=== PATIENT | female | born 1985 | race Two or more races ===

== ENCOUNTER 2024-11-22 15:28 | Emergency (ER) | payer MEDICAID, SELFPAY ==
[2024-11-22 15:50] VITALS: BP 128/82; PULSE 63; RESP 18; TEMP 36.8; O2SAT 99; BMI 25.9
--- NOTE | 2024-11-22 15:53 | XR_ITS ---
Examination: Shoulder,left, 3 views Technique: Shoulder AP internal rotation, AP external rotation, Y view shoulder, 3 views Exam date and time :November 22, 2024 1554 hours INDICATIONS: Patient fell today with injury to the shoulder, shoulder pain FINDINGS: No shoulder fracture or dislocation No AC joint separation IMPRESSION: No shoulder fracture or dislocation
--- NOTE | 2024-11-22 16:07 | PD.EDUPEX ---
Upper Extremity Injury RME/HPI General Chief Complaint: Extremity Injury, Upper Stated Complaint: over extended left shoulder and heard pop. Time Seen by Provider: 11/22/24 15:48 Arrival date/time: 11/22/24 15:28 39-year-old female presents emergency department today since she overextended her left shoulder and heard a pop yesterday patient reports pain with movement of left shoulder at this time Limitations: no limitations Related Data Previous Rx's ?Medication ?Instructions ?Recorded acetaminophen 500 mg capsule 1,000 mg (2 x 500 mg) PO Q8HR PRN 02/10/24 pain #30 caps Allergies Allergy/AdvReac Type Severity Reaction Status Date / Time fentanyl Allergy Severe Hives Verified 11/22/24 15:30 hydromorphone [From Dilaudid] Allergy Severe Hives Verified 11/22/24 15:30 ibuprofen Allergy Severe Hives Verified 11/22/24 15:30 ketorolac Allergy Severe ANXIETY,ITC Verified 11/22/24 15:30 DEL morphine Allergy Severe ANXIETY,ITC Verified 11/22/24 15:30 DEL ondansetron HCl Allergy Severe ITCHING, Verified 11/22/24 15:30 WELTS Pork/Porcine Containing Allergy Severe THROAT Verified 11/22/24 15:30 Products SWELLS, HIVES Review of Systems Review of Systems Systems Reviewed: All systems reviewed, normal except as documented Constitutional Constitutional: Reports system reviewed and no additional complaints, except as documented, Denies fever(s) and Denies headache(s) Eyes Eyes: Reports system reviewed and no additional complaints, except as documented and Denies blurry vision ENT Ears, Nose, Mouth, and Throat: Reports system reviewed and no additional complaints, except as documented, Denies headache(s), Denies nasal congestion and Denies nasal discharge Cardiovascular Cardiovascular: Reports system reviewed and no additional complaints, except as documented, Denies chest pain and Denies dyspnea Respiratory Respiratory: Reports system reviewed and no additional complaints, except as documented, Denies chest congestion, Denies cough and Denies dyspnea Gastrointestinal Gastrointestinal: Reports system reviewed and no additional complaints, except as documented and Denies abdominal pain Musculoskeletal Musculoskeletal: Reports system reviewed and no additional complaints, except as documented, Reports arthralgias, Reports stiffness and Denies tingling Integumentary/Breasts Skin/Breast: Reports system reviewed and no additional complaints, except as documented and Denies rash Neurologic Neurologic: Reports system reviewed and no additional complaints, except as documented, Reports as per HPI, Denies headache(s) and Denies tingling Past Medical History Past Medical History NEUROLOGIC: Negative Neurological Disorders CARDIAC: Negative Cardiac Disorders ED Exam General Limitations: Present no limitations General appearance: Present alert and in no apparent distress Head Head exam: Present atraumatic, normocephalic and normal inspection Eye Eye exam: Present normal appearance, PERRL and EOMI ENT ENT exam: Present normal exam, normal oropharynx and mucous membranes moist Neck Neck exam: Present normal inspection, full ROM and trachea midline Chest Chest inspection: Present normal inspection and symmetric chest wall rise Respiratory Respiratory exam: Present normal lung sounds bilaterally Cardiovascular Cardiovascular exam: Present regular rate, normal rhythm and normal heart sounds Abdominal Exam Abdominal exam: Present soft and normal bowel sounds Extremities Exam Extremities exam: Present normal inspection, full ROM, tenderness, normal capillary refill and other (Left shoulder pain); Absent joint swelling Back Exam Back exam: Present normal inspection and full ROM Neurological Exam Neurological exam: Present alert, oriented X3 and CN II-XII intact Psychiatric Psychiatric exam: Present normal affect and normal mood Skin Skin exam: Present warm, dry, intact and normal color Course Quality Measures none Orders Category Date Time Status sling [Splint / Immobilizer] STAT Care 11/22/24 16:09 Active XR shoulder LT min 2V Stat Exams 11/22/24 15:53 Completed Vital Signs Vital signs: Vital Signs Temperature 98.3 F 11/22/24 15:50 Pulse Rate 63 11/22/24 15:50 Respiratory Rate 18 11/22/24 15:50 Blood Pressure 128/82 11/22/24 15:50 Pulse Oximetry (%) 99 11/22/24 15:50 Oxygen Delivery Method Room Air 11/22/24 15:50 O2 saturation 99% room air within normal limits Extremity Injury MDM Narrative MDM Narrative:: 39-year-old female presents emergency department today since she overextended her left shoulder and heard a pop yesterday patient reports pain with movement of left shoulder at this time X-ray left shoulder obtained no acute fracture dislocation noted I do suspect patient has a rotator cuff tear Patient placed in a sling Patient discharged home in no distress to follow-up with primary care doctor in the next 24 to 48 hours and for any worsening symptoms to return to the ER immediately Patient data External records reviewed:: [facility] previous records Clinical information provided by:: patient Social determinants that could affect healthcare access:: none Patient has the following chronic illnesses:: See history How is presenting disease/condition affected by chronic disease/condition?: uneffected by Evaluation data The following diagnostics were reviewed and interpreted by me:: radiology exam(s) Lab and/or radiology exams considered but not ordered:: Radiology obtain Interpretation Summary: N/A Medications / Prescriptions Medications or Prescriptions considered but not ordered:: Given Medication administrations:: Given Consultations Consultation(s) initiated? (list below): No Diagnosis Upper Extremity Injury Differential Diagnosis: other (Shoulder sprain, shoulder fracture) Most likely diagnosis given after review of the tests above:: Shoulder sprain Admission Indicated Admission indicated?: not indicated Admission Request Was there a request for admission?: No Disposition Plan Disposition Plan: Discharge Discharge Attestation Discharge Attestation: The patient and all family members were given an opportunity to ask questions and understood the discharge instructions. Discharge instructions specifically effects, indications for sooner follow up or return to the emergency department, and the expected course of current diagnosis. Patient condition: Stable Discharge Plan Plan Patient Disposition: HOME (Self Care) Disposition Comment: Stable Prescriptions/Referrals Prescriptions/Med Rec: No Action acetaminophen 500 mg capsule 1,000 mg PO Q8HR PRN (Reason: pain) Qty: 30 0RF Problem List Clinical Impression: Injury of left rotator cuff Patient/Caregiver Discharge Instructions Education Materials: External Rotation Shoulder Additional Instructions: I suspect you have a rotator cuff injury please see your PCP for further evaluation and MRI Print Language: Malaysian Stand Alone Forms: Maryam Award Info., Work/School Release, Patient Portal Info Letter KARLA/JASON Supervising Physician KARLA/JASON Supervising Physician: Dr encarnacion
== END 2024-11-22 17:00 | disposition home or self-care (01) ==
LOC: SERX 16:15
PROVIDERS: Emergency Provider Emergency Medicine; PCP Family Medicine
DX: S46.002A Unspecified injury of muscle(s) and tendon(s) of the rotator cuff of left shoulder, initial encounter (principal); X58.XXXA Exposure to other specified factors, initial encounter
CPT/HCPCS: 73030; 99283; A4565

== ENCOUNTER 2025-02-12 09:57 | Emergency (ER) | payer MEDICAID, SELFPAY ==
[2025-02-12 09:58] VITALS: BMI 25.7
--- NOTE | 2025-02-12 10:39 | XR_ITS ---
Examination: PA lateral chest 2 views TECHNIQUE: Upright PA lateral chest 2 views Exam date and time: February 12, 2025 1057 hours INDICATIONS: Coughing fever being 3 days ago. FINDINGS: Normal heart size Lungs are clear. The osseous structures are intact IMPRESSION: No active disease
--- NOTE | 2025-02-12 10:40 | EDNOTE_ITS ---
<Statement entered by Narda Jameson MD - 02/12/25 15:15> As co-signing physician, I was present and available for consult prn. I concur with the plan and care as documented by the midlevel provider. Upper Respiratory Inf. RME/HPI General Chief Complaint: Shortness of Breath/Dyspnea Stated Complaint: SOB & COUGH X3 DAYS Time Seen by Provider: 02/12/25 10:41 Source: patient Arrival date/time: 02/12/25 09:57 39-year-old female with no known medical history presents to the emergency room with a chief complaint of shortness of breath, cough, left ear pain x 3 days Mode of arrival: ambulatory Limitations: no limitations Related Data Previous Rx's ?Medication ?Instructions ?Recorded acetaminophen 500 mg capsule 1,000 mg (2 x 500 mg) PO Q8HR PRN 02/10/24 pain #30 caps hydrocodone 5 mg-acetaminophen 325 1 tab PO BID PRN pa in #10 tabs 11/22/24 mg tablet amoxicillin 875 mg-potassium 1 tab PO BID 7 days #14 t abs 02/12/25 clavulanate 125 mg tablet Allergies Allergy/AdvReac Type Severity Reaction Status Date / Time fentanyl Allergy Severe Hives Verified 11/22/24 15:30 hydromorphone (From Dilaudid) Allergy Severe Hives Verified 11/22/24 15:30 ibuprofen Allergy Severe Hives Verified 11/22/24 15:30 ketorolac Allergy Severe ANXIETY,ITC Verified 11/22/24 15:30 DEL morphine Allergy Severe ANXIETY,ITC Verified 11/22/24 15:30 DEL ondansetron HCl Allergy Severe ITCHING, Verified 11/22/24 15:30 WELTS Pork/Porcine Containing Allergy Severe THROAT Verified 11/22/24 15:30 Products SWELLS, HIVES Review of Systems Review of Systems Systems Reviewed: All systems reviewed, normal except as documented Constitutional Constitutional: Reports system reviewed and no additional complaints, except as documented, Denies fatigue, Denies fever(s), Denies headache(s) and Denies weakness Eyes Eyes: Reports system reviewed and no additional complaints, except as documented, Denies blurry vision and Denies change in vision ENT Ears, Nose, Mouth, and Throat: Reports system reviewed and no additional complaints, except as documented, Reports otalgia, Denies headache(s), Denies nasal congestion, Reports sore throat, Denies throat swelling and Denies vertigo Cardiovascular Cardiovascular: Reports system reviewed and no additional complaints, except as documented, Denies chest pain, Reports dyspnea and Denies dyspnea on exertion Respiratory Respiratory: Reports system reviewed and no additional complaints, except as documented, Reports chest congestion, Reports cough, Reports dyspnea, Denies dyspnea on exertion and Denies wheezing Gastrointestinal Gastrointestinal: Reports system reviewed and no additional complaints, except as documented, Denies abdominal pain, Denies cramping, Denies nausea and Denies vomiting Genitourinary Genitourinary: Reports system reviewed and no additional complaints, except as documented Musculoskeletal Musculoskeletal: Reports system reviewed and no additional complaints, except as documented and Denies back pain Integumentary/Breasts Skin/Breast: Reports system reviewed and no additional complaints, except as documented and Denies wounds Neurologic Neurologic: Reports system reviewed and no additional complaints, except as documented, Denies confusion, Denies headache(s), Denies lack of coordination, Denies vertigo and Denies weakness Psychiatric Psychiatric: Reports system reviewed and no additional complaints, except as documented, Denies anxiety, Denies confusion, Denies depression, Denies paranoia, Denies suicidal ideation and Denies tactile hallucinations Endocrine Endocrine: Reports system reviewed and no additional complaints, except as documented and Denies fatigue Hematologic/Lymphatic Hematologic/Lymphatic: Reports system reviewed and no additional complaints, except as documented and Denies lymphadenopathy Allergic/Immunologic Allergic/Immunologic: Reports system reviewed and no additional complaints, except as documented, Denies throat swelling, Denies urticaria and Denies wheezing Past Medical History Past Medical History NEUROLOGIC: Negative Neurological Disorders or Seizures CARDIAC: Negative Cardiac Disorders or Congestive Heart Failure RESPIRATORY: Negative Chronic Obstructive Pulmonary Disease (COPD) GASTROINTESTINAL: Negative Gastrointestinal Disorders GENITOURINARY: Positive Genitourinary Disorders; Negative Renal Disease MUSCULOSKELETAL: Positive Musculoskeletal Disorders (left knee surgery (10 years ago).) ENDOCRINE: Negative Diabetes Mellitus Type 1 or Diabetes Mellitus Type 2 OTHER HISTORY: Negative Autoimmune Disease, Blood Transfusions, Blood Transfusion Reaction or Anesthesia Reactions Family History FAMILY HISTORY: Negative Family Psychiatric Problems, Family Respiratory Disorders, Family Cardiac Disorders, Family Gastrointestinal Problems, Family Cancer or Family Anesthesia Reaction Surgical History SURGICAL: Positive Abdominal Surgery and Hysterectomy Social History SMOKING STATUS: Never smoker ED Exam General Limitations: Present no limitations General appearance: Present alert and in no apparent distress Head Head exam: Present atraumatic Eye Eye exam: Present normal appearance, PERRL and EOMI ENT ENT exam: Present normal exam, normal oropharynx and mucous membranes moist Expanded ENT Exam Mouth exam: Present normal external inspection Teeth exam: Present normal inspection Throat exam: Present normal inspection; Absent tonsillar erythema, tonsillar exudate or muffled voice Neck Neck exam: Present normal inspection, full ROM and trachea midline Chest Chest inspection: Present normal inspection and symmetric chest wall rise Respiratory Respiratory exam: Present normal lung sounds bilaterally; Absent respiratory distress, wheezes, stridor, accessory muscle use or prolonged expiratory phase Cardiovascular Cardiovascular exam: Present regular rate, normal rhythm and normal heart sounds Abdominal Exam Abdominal exam: Present soft and normal bowel sounds Extremities Exam Extremities exam: Present normal inspection and full ROM Back Exam Back exam: Present normal inspection and full ROM Neurological Exam Neurological exam: Present alert, oriented X3 and CN II-XII intact Psychiatric Psychiatric exam: Present normal affect and normal mood Skin Skin exam: Present warm, dry, intact and normal color Course Quality Measures none Orders Category Date Time Status Bedside COVID-19 Antigen Test NOW Care 02/12/25 10:39 Completed Bedside Influenza A&B Antigen Test NOW Care 02/12/25 10:39 Completed XR chest 2V Stat Exams 02/12/25 10:39 Completed Vital Signs Vital signs: Vital Signs Temperature 99.0 F 02/12/25 10:41 Pulse Rate 80 02/12/25 10:41 Respiratory Rate 19 02/12/25 10:41 Blood Pressure 119/81 02/12/25 10:41 Pulse Oximetry (%) 98 02/12/25 10:41 Oxygen Delivery Method Room Air 02/12/25 10:41 O2 saturation 98% within normal limits Upper Respiratory Infection MDM Narrative MDM Narrative:: 39-year-old female with no known medical history presents to the emergency room with a chief complaint of shortness of breath, cough, left ear pain x 3 days Patient is hemodynamically stable and in no apparent distress There is no tachypnea no tachycardia and the patient is afebrile. O2 saturation is 97% on room air Lung sounds are clear bilaterally there is no wheezing or any abnormal breath sounds ENT examination shows a erythemic posterior pharynx there are no bilateral tonsillar exudates. The left-sided tympanic membrane is erythemic and bulging. Antibiotics are sent to the patient's pharmacy Chest x-ray was negative for any pneumonic infiltrates. COVID-19 and influenza were negative. Patient was discharged and educated to follow-up with primary care provider in the next 24 to 48 hours and return to the emergency room for any evidence of worsening signs or symptoms Patient data External records reviewed:: [facility] previous records Clinical information provided by:: patient Social determinants that could affect healthcare access:: none Patient has the following chronic illnesses:: No chronic illness How is presenting disease/condition affected by chronic disease/condition?: no chronic disease Evaluation data The following diagnostics were reviewed and interpreted by me:: lab results and radiology exam(s) Lab and/or radiology exams considered but not ordered:: Labs and radiology exams considered and ordered Interpretation Summary: Chest x-ray-no pneumonic infiltrates Medications / Prescriptions Medications or Prescriptions considered but not ordered:: Medication given Medication administrations:: Medication given Consultations Consultation(s) initiated? (list below): No Diagnosis Upper Respiratory Differential Diagnosis: upper respiratory infection, otitis media, viral infection, bronchitis, influenza and pharyngitis Most likely diagnosis given after review of the tests above:: Otitis media Admission Indicated Admission indicated?: not indicated Admission Request Was there a request for admission?: No Disposition Plan Disposition Plan: Discharge Discharge Attestation Discharge Attestation: The patient and all family members were given an opportunity to ask questions and understood the discharge instructions. Discharge instructions specifically effects, indications for sooner follow up or return to the emergency department, and the expected course of current diagnosis. Patient condition: Stable Discharge Plan Plan Patient Disposition: HOME (Self Care) Disposition Comment: Stable Prescriptions/Referrals Prescriptions/Med Rec: New amoxicillin-pot clavulanate 875-125 mg tablet 1 tab PO BID 7 Days Qty: 14 0RF No Action acetaminophen 500 mg capsule 1,000 mg PO Q8HR PRN (Reason: pain) Qty: 30 0RF hydrocodone-acetaminophen 5-325 mg tablet 1 tab PO BID MDD 10 PRN (Reason: pain) Qty: 10 0RF Referrals: Ted Larkin MD [Primary Care Provider] - In 1 week Problem List Clinical Impression: Otitis media Patient/Caregiver Discharge Instructions Education Materials: ED Otitis Media Antibiotic ... Additional Instructions: Please follow-up with your primary care provider in the next 24 to 48 hours. Antibiotics are sent to your pharmacy please pick them up and take them as indicated. Your chest x-ray was negative for any pneumonia. COVID-19 and influenza swabs are both negative For any evidence of worsening signs or symptoms return to the emergency room immediately Print Language: Georgian Stand Alone Forms: Maryam Award Info., Patient Portal Info Letter PA/CARD FILER Supervising Physician PA/CARD FILER Supervising Physician: Dr. JAMESON
[2025-02-12 10:41] VITALS: BP 119/81; PULSE 80; RESP 19; TEMP 37.2; O2SAT 98
[2025-02-12 13:03] VITALS: BP 117/78; PULSE 75; RESP 19; TEMP 36.7; O2SAT 97
== END 2025-02-12 13:19 | disposition home or self-care (01) ==
PROVIDERS: Emergency Provider Emergency Medicine; PCP Family Medicine
DX: H66.92 Otitis media, unspecified, left ear (principal)
CPT/HCPCS: 71046; 87400; 87811; 99283